=== PATIENT | female | born 1990 | race African-American/Black ===

== ENCOUNTER 2016-05-26 15:07 | Emergency (ER) | payer OTHER ==
[~2016-05-26] VITALS: Ht 167.6 cm; Wt 64.4 kg
[~2016-05-26 15:07] MED LIST: ACET50TA PO; MOM30SS PO; MOTR200T44 PO; PERCOCET PO; STUATAB PO; [UNRECOGNIZED DRUG - CODE] PO
[2016-05-26 16:35] LABS: BASO % 0.3 % (0.0-1.0); EOS # 0.2 K/mm3 (0.0-0.50); EOS % 1.7 % (0.0-3.0); LARGE UNSTAINED CELL # 0.1 K/mm3 (0.0-0.4); LARGE UNSTAINED CELL % 0.9 % (0.0-4.0); LYMPH # 2.4 K/mm3 (1.5-6.5); LYMPH % 25.7 % (24.0-44.0); MEAN CORPUSCULAR HEMOGLOBIN 27.8 pg (27.0-33.0); MEAN CORPUSCULAR HGB CONC 33.9 g/dl (32.0-36.5); MEAN CORPUSCULAR VOLUME 81.8 fl (80.0-96.0); MONO # 0.5 K/mm3 (0.0-0.8); MONO % 4.8 % (0.0-5.0); NEUTROPHILS # 6.3 K/mm3 (1.8-7.7); NEUTROPHILS % 66.6 % (36.0-66.0); PLATELET COUNT, AUTOMATED 300 k/mm3 (150-450); RED CELL DISTRIBUTION WIDTH 13.6 % (11.5-14.5); WHITE BLOOD COUNT 9.4 K/mm3 (4.0-10.0)
[2016-05-26] MEDS ORDERED: ONDANSETRON 4MG/2ML VIAL (J2405) IV ONE (16:45)
[2016-05-26] MEDS ORDERED: NS 1,000 ML IV ONE (16:45)
[2016-05-26] MEDS ORDERED: KETOROLAC 30 MG/ML VIAL (J1885) IV ONE (16:45)
[2016-05-26 16:54] LABS: ALBUMIN 3.8 GM/DL (3.2-5.2); ALBUMIN/GLOBULIN RATIO 1.12 (1.00-1.93); ALKALINE PHOSPHATASE 68 U/L (45-117); ALT/SGPT 19 U/L (12-78); ANION GAP 7 MEQ/L (8-16); AST/SGOT 12 U/L (15-37); BILIRUBIN,TOTAL 0.2 MG/DL (0.2-1.0); BLOOD UREA NITROGEN 9 MG/DL (7-18); CALCIUM LEVEL 8.7 MG/DL (8.5-10.1); CARBON DIOXIDE LEVEL 27 MEQ/L (21-32); CHLORIDE LEVEL 105 MEQ/L (98-107); CREATININE FOR GFR 0.72 MG/DL (0.55-1.02); GLOMERULAR FILTRATION RATE > 60.0 (>60); GLUCOSE, FASTING 88 MG/DL (70-105); POTASSIUM SERUM 3.5 MEQ/L (3.5-5.1); SODIUM LEVEL 139 MEQ/L (136-145); TOTAL PROTEIN 7.2 GM/DL (6.4-8.2)
[2016-05-26 17:28] LABS: HCG, SERUM QUANTITATIVE 1075 MIU/ML
--- NOTE | 2016-05-26 17:54 | REP ---
Clinical: Pelvic pain for dating and viability. Technique: Transabdominal and transvaginal first trimester obstetrical ultrasound with color Doppler evaluation. Findings: Anteverted heterogeneous uterus measures 8.6 x 6.0 x 5.3 cm the endometrial complex is heterogeneous and thickened to 18 mm suggesting decidual reaction and possible hemorrhagic debris. No intrauterine identified. Maternal ovaries are normal in appearance and vascularity without torsion. Right ovary measures 4.4 x 2.9 x 2.2 cm with a 1.9 cm corpus luteum; RI equal 0.39. Left ovary measures 3.7 x 2.6 x 2.0 cm; RI equal 0.82. No pelvic mass lesion. Trace fluid. Impression: Thickened heterogeneous endometrium without intrauterine . Differential diagnosis includes early intrauterine with decidual reaction, spontaneous , and less likely ectopic cannot be excluded. Correlation with serial HCG levels and repeat ultrasound as necessary. Signed by Brendan Dee MD 05/26/2016 05:45 P
[2016-05-26] MEDS ORDERED: REGL10TA6 PO (17:55)
[2016-05-26 18:09] VITALS: BP 144/71
== END 2016-05-26 18:12 | disposition home or self-care (01) ==
LOC: M ED 16:35
DX: Z32.01 Encounter for pregnancy test, result positive (principal); R10.2 Pelvic and perineal pain
CPT/HCPCS: 76801; 76817; 80053; 81001; 81025; 84702; 85025; 86850; 86900; 86901; 87086; 93976; 96361; 96374; 96375; 99283; J1885; J2405